=== PATIENT | male | born 1955 | race Caucasian/White ===

== ENCOUNTER → 2023-08-01 15:09 | Outpatient (REF) | payer OTHER, SELFPAY | LOC: RAD 15:09 | PROVIDERS: ATTENDING PHYSICIAN Family Medicine | DX: Z09 Encounter for follow-up examination after completed treatment for conditions other than malignant neoplasm (principal); R05.9 Cough, unspecified | CPT/HCPCS: 71046 ==

== ENCOUNTER → 2023-10-01 13:30 | Outpatient (REF) | payer OTHER, SELFPAY | LOC: MRI 3T 13:30 | PROVIDERS: ATTENDING PHYSICIAN Internal Medicine Gastroenterology; FAMILY PHYSICIAN Family Medicine | DX: K50.111 Crohn's disease of large intestine with rectal bleeding (principal) | CPT/HCPCS: 72197; A9575 ==

== ENCOUNTER 2023-10-03 06:21 | Day surgery (SDC) | payer OTHER, SELFPAY ==
[2023-10-03 13:33] VITALS: BMI 20.6
[2023-10-03 13:45] VITALS: BMI 20.6
[2023-10-03 13:48] VITALS: BP 121/79
[2023-10-03 16:49] VITALS: BP 94/67
[2023-10-03 17:00] VITALS: BP 113/67
[2023-10-03 17:15] VITALS: BP 121/85
== END 2023-10-03 17:37 | disposition home or self-care (01) ==
LOC: GI 06:21
PROVIDERS: ATTENDING PHYSICIAN Internal Medicine Gastroenterology
DX: R93.3 Abnormal findings on diagnostic imaging of other parts of digestive tract (principal); K86.2 Cyst of pancreas; K57.10 Diverticulosis of small intestine without perforation or abscess without bleeding; K50.90 Crohn's disease, unspecified, without complications; K20.0 Eosinophilic esophagitis; K22.2 Esophageal obstruction; K31.89 Other diseases of stomach and duodenum
CPT/HCPCS: 43242; 88173; 88305

== ENCOUNTER → 2024-02-25 11:02 | Outpatient (REF) | payer OTHER, SELFPAY ==
[2024-02-25 11:39] LABS: % Basophils 0.7 % (0-2); % Eosinophils 4.3 % (0-6); % Immature Granulocytes 0.3 % (0-0.5); % Monocytes 11.1 % (1.7-9.3); % Neutrophils 37.6 % (42.2-75.2); Absolute Basophils 0.1 10^3/uL (0-0.2); Absolute Eosinophils 0.3 10^3/uL (0-0.7); Absolute Lymphocytes 3.1 10^3/uL (1.2-3.4); Absolute Monocytes 0.8 10^3/uL (0.1-0.6); Absolute Neutrophils 2.5 10^3/uL (1.4-6.5); Hematocrit 41.4 % (39.0-52.0); Mean Corp Hgb Conc. 33.8 g/dL (33.0-37.0); Mean Corpuscular Hgb 28.5 pg (27.0-31.0); Mean Corpuscular Volume 84.3 fL (80.0-94.0); Nucleated Red Blood Cells % 0 % (-); Red Blood Cell Count 4.91 10^6/uL (4.70-6.10); Red Cell Dist. Width 14.6 % (11.5-14.5); White Blood Cell Count 6.7 10^3/uL (4.8-10.8)
[2024-02-25 11:56] LABS: Platelet Count 51 10^3/uL (130-400)
== END ==
LOC: REG 11:02
PROVIDERS: ATTENDING PHYSICIAN Internal Medicine Hematology & Oncology; FAMILY PHYSICIAN Family Medicine
DX: D69.6 Thrombocytopenia, unspecified (principal)
CPT/HCPCS: 36415; 85025

== ENCOUNTER → 2024-03-10 09:28 | Outpatient (REF) | payer OTHER, SELFPAY ==
[2024-03-10 09:59] VITALS: BP 145/83; BP_SYST 48
[2024-03-10 10:37] LABS: % Basophils 0.7 % (0-2); % Eosinophils 5.1 % (0-6); % Immature Granulocytes 0.2 % (0-0.5); % Lymphocytes 42.4 % (20.5-51.1); % Monocytes 8.9 % (1.7-9.3); % Neutrophils 42.7 % (42.2-75.2); Absolute Eosinophils 0.3 10^3/uL (0-0.7); Absolute Lymphocytes 2.3 10^3/uL (1.2-3.4); Absolute Monocytes 0.5 10^3/uL (0.1-0.6); Absolute Neutrophils 2.4 10^3/uL (1.4-6.5); Hematocrit 43.8 % (39.0-52.0); Hemoglobin 14.9 g/dL (13.0-18.0); Mean Corpuscular Hgb 28.7 pg (27.0-31.0); Mean Corpuscular Volume 84.4 fL (80.0-94.0); Nucleated Red Blood Cells % 0 % (-); Red Blood Cell Count 5.19 10^6/uL (4.70-6.10); Red Cell Dist. Width 13.9 % (11.5-14.5); White Blood Cell Count 5.5 10^3/uL (4.8-10.8)
[2024-03-10] MEDS: FLUSH (NSS) 1 FLUSH IV (10:46)
[2024-03-10] MEDS: ATIVAN 0.5 MG IV (10:46)
[2024-03-10] MEDS: NSS (PRESERVATIVE FREE) 0.25 ML IV (10:47)
[2024-03-10 11:30] VITALS: BP 128/75
[2024-03-10 11:31] LABS: Platelet Count 41 10^3/uL (130-400)
== END ==
LOC: RADI 09:28
PROVIDERS: ATTENDING PHYSICIAN Internal Medicine Hematology & Oncology; FAMILY PHYSICIAN Physician Assistant
DX: D69.6 Thrombocytopenia, unspecified (principal); D68.8 Other specified coagulation defects
CPT/HCPCS: 88305; 88312; 36415; 38222; 77012; 85025; 85610; 88313

== ENCOUNTER → 2024-03-24 07:35 | Outpatient (REF) | payer OTHER, SELFPAY | LOC: RAD 07:35 | PROVIDERS: ATTENDING PHYSICIAN Internal Medicine Hematology & Oncology; FAMILY PHYSICIAN Family Medicine | DX: D69.9 Hemorrhagic condition, unspecified (principal) | CPT/HCPCS: 76700 ==

== ENCOUNTER → 2024-04-14 06:28 | Day surgery (SDC) | payer OTHER, SELFPAY | LOC: GI 06:28 | PROVIDERS: ATTENDING PHYSICIAN Internal Medicine Gastroenterology | DX: K50.90 Crohn's disease, unspecified, without complications (principal); K91.81 Other intraoperative complications of digestive system; K64.0 First degree hemorrhoids; Z98.0 Intestinal bypass and anastomosis status | CPT/HCPCS: 45380; 88305 ==

== ENCOUNTER → 2024-04-29 13:39 | Outpatient (REF) | payer OTHER, SELFPAY | LOC: MRI 13:39 | PROVIDERS: ATTENDING PHYSICIAN Internal Medicine Gastroenterology; FAMILY PHYSICIAN Family Medicine | DX: K86.9 Disease of pancreas, unspecified (principal) | CPT/HCPCS: 74183; A9575 ==

== ENCOUNTER → 2025-02-01 09:07 | Outpatient (REF) | payer OTHER, SELFPAY | LOC: HWRAD 09:07 | PROVIDERS: ATTENDING PHYSICIAN Internal Medicine Gastroenterology; FAMILY PHYSICIAN Family Medicine | DX: R74.8 Abnormal levels of other serum enzymes (principal) | CPT/HCPCS: 76700 ==

== ENCOUNTER → 2025-05-20 15:13 | Outpatient (REF) | payer OTHER, SELFPAY | LOC: REG 15:13 | PROVIDERS: ATTENDING PHYSICIAN Nurse Practitioner Family | DX: R05.9 Cough, unspecified (principal) | CPT/HCPCS: 71046 ==